=== PATIENT | female | born 1980 | race Native Hawaiian/Other Pacific Islander ===

== ENCOUNTER 2017-05-06 07:22 | Outpatient (CLI) | payer BC ==
[2017-05-06 09:48] LABS: PLATELET COUNT 322 K/uL (152-353)
[2017-05-06 09:49] LABS: POTASSIUM 4.3 mmol/L (3.6-5.2); SODIUM 135 mmol/L (136-145)
== END 2017-05-06 09:15 | disposition home or self-care (01) ==
LOC: LABW 07:22 → RESP 07:22 → LABW 09:15
PROVIDERS: Plastic Surgery Plastic Surgery Within the Head and Neck
DX: Z01.812 Encounter for preprocedural laboratory examination (principal); Z01.818 Encounter for other preprocedural examination
CPT/HCPCS: 36415; 80048; 85027; 93005